=== PATIENT | male | born 1990 | race Two or more races ===

== ENCOUNTER 2017-10-14 10:52 | Emergency (ER) | payer OTHER ==
[~2017-10-14] VITALS: Ht 170.2 cm; Wt 63.5 kg
--- NOTE | 2017-10-14 11:14 | Emergency Room Report ---
History of Present Illness Time Seen by MD Sultana Presenting Problem in Triage Pt arrived:Walked Presenting Problem:PT ADVISES HE ATE ONE COOKIE LACED WITH DRUGS. PT ADVISES HE FEELS NAUSEATED. NO OTHER COMPLAINTS AT THIS TIME Onset of symptoms date/time:/ or onset unknown for:MEDICAL HX UNKNOWN Treatment Prior to Arrival: [employer] Provided by: Sepsis Risk Assessment: Temp: 98.6 B/P: 115/64 MAP: 81 Pulse: 105 Resp: 16 Recent fever? N Clinical Suspician of Infection? N Mental Status: 1 - Regular (Normal Baseline) Sepsis Risk:Low Sepsis Risk Have you (or family members/close friends) recently traveled outside the [place]? N If Yes, where/when: Have you had exposure to infectious disease within the past month? N TB? Other? Specify: Patient complains of ingesting cookies that were laced with marijuana, he is here with a group with 5 other people ingested the same cookies. Patient states he feels lightheaded he denies any pain, some nausea no other complaints. ALLERGIES Coded Allergies: No Known Allergies (10/14/17) Home Medications Reported Medications No Known Home Medications History Medical History General CAD? No Angina: No OK: No Hypertension? No Hyperlipidemia? No CHF? No DVT? No PE? No COPD? No Asthma? No Anemia? No GERD? No Gastric ulcers? No GI Bleed? No Hernia? No Thyroid Problems? No Hypothyroidism? No CVA? No Seizures? No Diabetes? No Renal Insuffiency? No End Stage Renal Disease? No UTI? No Stones? No BPH? No GB Disease: No Nephritic Syndrome? No Asplenia? No Hepatitis? No Sickle Cell Disease? No Arthritis? No Migraines? No Cataracts? No Glaucoma? No MRSA? No HIV? No TB? No Anxiety? No Depression? No Cancer? No More? No Immunization Hx DT/Tetanus Unknown Surgical Hx Previous Surgery?N Social History Smoking Hx Smoker: Never Smoker Tobacco: No Type N/A Alcohol Alcohol: No Review of Systems All Other Systems Reviewed and Negative Physical Exam Vital Signs Vital Signs Date Time Temp Pulse Resp B/P Pulse O2 O2 Flow FiO2 Ox Delivery Rate 10/14 1206 86 86 164/84 99 10/14 1054 98.6 105 16 115/64 98 General Appearance: Nontoxic Head: Normocephalic, without obvious abnormality, atraumatic. Eyes: conjunctiva/corneas clear ENT: Mucous membranes moist. Neck: No jugular venous distention. Cardiac: regular rate and rhythm Lungs: Clear to auscultation bilaterally Abdomen: Nontender, Nondistended, positive bowel sounds, no rebound : No CVA tenderness Extremities: no edema Musculoskeletal: No chest wall tenderness Skin: No rashes or lesions to exposed skin. Neurologic: Alert. No gross focal deficits Psychiatric: Normal affect (Emilee BETHEA, [place]) General Appearance normal appearance Respiratory Status No: respiratory distress. Cardiovascular normal exam Neurologic alert Medical Decision Making LABS/Meds/Orders Pt receiving controlled substance in ED? No Comment 1136 2/ of the same overdose patients who are more symptomatic have low potassium levels. labs ekg ordered. ER electrocardiogram read by myself shows a rate of 87 normal sinus rhythm. nl axis QRS 116 QT corrected 430 101pm pt smiling nad, labs ok, vital signs stable. plan DC home Results/Orders Laboratory Tests 10/14/17 1140: Troponin I < 0.02 10/14/17 1140: Sodium 137, Potassium 3.7, Chloride 105, Carbon Dioxide 27, BUN 13, Creatinine 1.0, Estimated Creat Clear 101, Estimated GFR (MDRD) 91, Glucose 130 H, Calcium 9.0, Total Bilirubin 0.3, AST 26, ALT 42, Alkaline Phosphatase 65, Total Protein 7.4, Albumin 4.2, Globulin 3.2, Albumin/Globulin Ratio 1.3, WBC 7.3, RBC 4.93, Hgb 14.7, Hct 44.7, MCV 90.7, RDW 13.1, Plt Count 122 L, MPV 9.5, Gran % 82.8 H, Gran # 6.0, Lymphocytes % 12.7, Monocytes % 3.8, Eosinophils % 0.5, Basophils % 0.3, Lymphocytes # 0.9, Monocytes # 0.3, Eosinophils # 0.0, Basophils # 0.0, PUBS MCHC 33.0, MCH 29.9 Orders Procedure Date/time Status TROPONIN I 10/14 1155 Complete JOURNEYMAN [facility]WRIGHT 10/14 1140 Active ELECTROCARDIOGRAM REQUEST 10/14 1131 Active CBC WITH AUTO DIFF 10/14 1131 Complete CHEM 12 PROFILE 10/14 1131 Complete 12 LEAD EKG-AUDREY (INITIAL) 10/14 UNK Active Departure Departure Time of Disposition 1301 Disposition DC Home or Self Care(routine) Clinical Impression Primary Impression: Drug ingestion Qualifiers: Encounter type: initial encounter Injury intent: accidental or unintentional Qualified Code: T50.901A - Poisoning by unspecified drugs, medicaments and biological substances, accidental (unintentional), initial encounter Condition STABLE Referrals NO REFERRAL Patient Instructions Drug Abuse and Drug Addiction Additional Instructions return if worse or any problems Prescriptions Current Visit Scripts No Known Home Medications ED Critical Care Critical Care No at 1306
[2017-10-14 11:57] LABS: HEMOGLOBIN 14.7 g/dL (14.1-18.0); LYMPH # 0.9 K/mm3 (0.7-4.5); LYMPH % 12.7 % (10-50)
--- OUTSIDE RECORDS SUMMARY | 2017-10-14 12:47 | External Medical Summary Rpt | CCD ---
Demographics Preferred Language Nepali Marital Status Unknown Confucianism Affiliation Unknown Race Unknown Ethnic Group Unknown Author Author , DARIUSZ ARZOLA Address Unknown Phone Immunization No patient found.
--- OUTSIDE RECORDS SUMMARY | 2017-10-14 12:47 | External Medical Summary Rpt | CCD ---
Author Author [employer] Organization [employer] Address Unknown Phone Unavailable Purpose Continuity of Care Document - through 2016
--- OUTSIDE RECORDS SUMMARY | 2017-10-14 12:47 | External Medical Summary Rpt | CCD ---
Author Author DARIUSZ Address Unknown Phone [email or web address] Purpose Continuity of Care Document - through 2016
--- OUTSIDE RECORDS SUMMARY | 2017-10-14 12:47 | External Medical Summary Rpt | CCD ---
Author Author DARIUSZ Address Unknown Phone [email or web address] Purpose Continuity of Care Document - through 2016
--- OUTSIDE RECORDS SUMMARY | 2017-10-14 12:47 | External Medical Summary Rpt | CCD ---
Demographics Preferred Language Occitan Marital Status Unknown Sikh Affiliation Unknown Race Unknown Ethnic Group Unknown Author Author , DARIUSZ ARZOLA Address Unknown Phone Immunization No patient found.
[2017-10-14 13:11] VITALS: BP 164/84
== END 2017-10-14 13:12 | disposition home or self-care (01) ==
LOC: ER 10:52
PROVIDERS: Emergency Medicine
DX: T50.901A Poisoning by unspecified drugs, medicaments and biological substances, accidental (unintentional), initial encounter (principal)